=== PATIENT | female | born 1980 | race Caucasian/White ===

== ENCOUNTER 2020-10-19 15:31 | Emergency (ER) | payer SELFPAY ==
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
[2020-10-19] MEDS ORDERED: LIDOCAINE 1% W/EPI 1:100,000 MDV 20 ML VIAL ONE (16:50)
[2020-10-19] MEDS ORDERED: SMZ./TMP. 800/160 MG TABLET ONE (17:00)
[2020-10-19] MEDS ORDERED: FAMOTIDINE 20 MG TAB ONE (17:00)
[2020-10-19] MEDS ORDERED: ONDANSETRON 4 MG (ODT) TAB ONE (17:00)
[2020-10-19] MEDS ORDERED: HYDROCODONE/APAP 10/325 TAB ONE (17:01)
[2020-10-19] MEDS ORDERED: NA CHLORIDE 0.9% 250 ML ONE (17:19)
--- NOTE | 2020-10-19 17:39 | RAD REPORT ---
EXAM DESCRIPTION: US - Extremity Nonvascular Limited - 10/19/2020 5:30 pm CLINICAL HISTORY: Left shoulder pain and swelling COMPARISON: None FINDINGS: Sonographic evaluation of left shoulder demonstrates an ill-defined 1 centimeter hypo to i soechoic area within the subcutaneous tissues in the area of swelling. IMPRESSION: 1 centimeter hypo to isoechoic area within the subcutaneous tissues left shoulder probab ly inflammation. A discrete drainable abscess is not visualized
--- NOTE | 2020-10-19 18:15 | EDPHYS ---
Physician Documentation [facility] Name: Payal Saavedra Age: 40 yrs Sex: Female : 1980 Arrival Date: 10/19/2020 Time: 15:35 Bed 28 Private MD: ED Physician Sanjiv Navarro HPI: 10/19 16:31 This 40 yrs old Female presents to ER via Ambulatory with complaints of kdr Insect Bite. 16:31 The patient presents with an abscess of the anterior aspect of left shoulder, the kdr patient presents with a swollen area of the anterior aspect of left shoulder. Description: erythematous, fluctuant, hot, raised, swollen, tense, warm. Onset: The symptoms/episode began/occurred gradually, 24 hour(s) ago. Possible cause(s): insect sting. Associated signs and symptoms: Pertinent positives: drainage, erythema, swelling. Modifying factors: the symptoms are alleviated by nothing, the symptoms are aggravated by movement, pressure, touching. Severity of symptoms: At their worst the symptoms were mild, moderate, just prior to arrival, in the emergency department the symptoms are unchanged. The patient has not experienced similar symptoms in the past. The patient has not recently seen a physician. 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 - Social history:: Smoking status: Patient reports the use of cigarette tobacco products, smokes one-half pack cigarettes per day. ROS: 16:31 Constitutional: Negative for fever, chills, and weight loss, Eyes: Negative for injury, kdr pain, redness, and discharge, Neck: Negative for injury, pain, and swelling, Cardiovascular: Negative for chest pain, palpitations, and edema, Respiratory: Negative for shortness of breath, cough, wheezing, and pleuritic chest pain, Abdomen/GI: Negative for abdominal pain, nausea, vomiting, diarrhea, and constipation, Back: Negative for injury and pain, : Negative for injury, bleeding, discharge, and swelling, MS/Extremity: Negative for injury and deformity, Neuro: Negative for headache, weakness, numbness, tingling, and seizure activity. Psych: Negative for depression, anxiety, suicide ideation, homicidal ideation, and hallucinations, Allergy/Immunology: Negative for hives, rash, and allergies, Endocrine: Negative for neck swelling, polydipsia, polyuria, polyphagia, and marked weight changes, Hematologic/Lymphatic: Negative for swollen nodes, abnormal bleeding, and unusual bruising. 16:31 Skin: Positive for abscess, cellulitis, erythema, swelling, of the anterior aspect of left shoulder. Exam: 16:31 Constitutional: This is a well developed, well nourished patient who is awake, alert, kdr and in no acute distress. Head/Face: Normocephalic, atraumatic. Eyes: Pupils equal round and reactive to light, extra-ocular motions intact. Lids and lashes normal. Conjunctiva and sclera are non-icteric and not injected. Cornea within normal limits. Periorbital areas with no swelling, redness, or edema. Neck: Trachea midline, no thyromegaly or masses palpated, and no cervical lymphadenopathy. Supple, full range of motion without nuchal rigidity, or vertebral point tenderness. No Meningismus. Chest/axilla: Normal chest wall appearance and motion. Nontender with no deformity. No lesions are appreciated. Cardiovascular: Regular rate and rhythm with a normal S1 and S2. No gallops, murmurs, or rubs. Normal PMI, no JVD. No pulse deficits. Respiratory: Lungs have equal breath sounds bilaterally, clear to auscultation and percussion. No rales, rhonchi or wheezes noted. No increased work of breathing, no retractions or nasal flaring. Abdomen/GI: Soft, non-tender, with normal bowel sounds. No distension or tympany. No guarding or rebound. No evidence of tenderness throughout. Back: No spinal tenderness. No costovertebral tenderness. Full range of motion. MS/ Extremity: Pulses equal, no cyanosis. Neurovascular intact. Full, normal range of motion. Neuro: Awake and alert, GCS 15, oriented to person, place, time, and situation. Cranial nerves II-XII grossly intact. Motor strength 5/5 in all extremities. Sensory grossly intact. Cerebellar exam normal. Normal gait. Psych: Awake, alert, with orientation to person, place and time. Behavior, mood, and affect are within normal limits. 16:31 Skin: abscess, that is moderate sized, of the anterior aspect of left shoulder, with fluctuance, that is moderate, with induration, with surrounding cellulitis. Vital Signs: 15:42 BP 118 / 90; Pulse 110; Resp 17 S; Temp 98.0(TE); Pulse Ox 99% on R/A; Weight 58.97 kg jd3 (R); Height 5 ft. 5 in. (165.10 cm) (R); Pain 6/10; 18:27 BP 112 / 82; Pulse 98; Resp 18; Temp 97.9; Pulse Ox 100% on R/A; ph 15:42 Body Mass Index 21.63 (58.97 kg, 165.10 cm) jd3 Procedures: 16:31 I \T\ D: Incision and drainage was performed for an abscess of the left anterior aspect kdr of left shoulder Prepped with Betadine, Anesthetized with ml's 2% Lidocaine with epinephrine. 5 ml's 2% Lidocaine with epinephrine. Incised with #11 blade. Drained small amount Packed with iodoform gauze, Dressing: sterile 4x4 gauze, the patient tolerated the procedure well, Since there remains indurated/abscess s/p initial drainage, will get US to determine nature of residual abscess vs indurated tissue. 17:07 I \T\ D:. kdr MDM: 16:31 Data reviewed: vital signs, nurses notes. Counseling: I had a detailed discussion with kdr the patient and/or guardian regarding: the historical points, exam findings, and any diagnostic results supporting the discharge/admit diagnosis, the need for outpatient follow up. 18:14 Patient medically screened. kdr 10/19 17:06 Order name: US Extrmty Nonvasular Limited; Complete Time: 18:02 kdr 10/19 16:31 Order name: Dressing - Wound; Complete Time: 16:36 kdr 10/19 16:31 Order name: Gloves, Sterile; Complete Time: 16:36 kdr 10/19 16:31 Order name: I\T\D Setup; Complete Time: 16:36 kdr 10/19 16:31 Order name: Scalpel; Complete Time: 16:36 kdr Administered Medications: 16:46 Drug: Zofran (Ondansetron) 4 mg Route: PO; ph 17:18 Follow up: Response: No adverse reaction ph 16:47 Drug: Sherrill (HYDROcodone-acetaminophen) 10 mg-325 mg 1 tabs Route: PO; ph 17:19 Follow up: Response: No adverse reaction ph 16:47 Drug: Clindamycin 300 mg Route: PO; ph 17:19 Follow up: Response: No adverse reaction ph 16:48 Drug: Bactrim (trimethoprim-sulfamethoxazole) (160 mg-800 mg (DS) 1 tablet Route: PO; ph 17:19 Follow up: Response: No adverse reaction ph 16:48 Drug: Pepcid (famotidine) 20 mg Route: PO; ph 17:18 Follow up: Response: No adverse reaction ph 16:50 Drug: Lidocaine-Epinephrine -1%: (1:100,000) 1 vials Volume: 20 ml; Route: Infiltration;ph 17:18 Follow up: Response: No adverse reaction ph 18:21 Drug: morphine 4 mg Route: IM; Site: right deltoid; ph 18:26 Follow up: Response: No adverse reaction ph Disposition: 10/19/20 18:14 Discharged to Home. Impression: Left Shoulder Cutaneous Abscess. - Condition is Stable. - Discharge Instructions: Skin Abscess, [id number], Cellulitis, Adult, [id number]-[id number], Clostridium Difficile FAQs - [place]. - Prescriptions for Clindamycin HCl 300 mg Oral Capsule - take 1 capsule by ORAL route every 6 hours for 10 days; 40 capsule. Zofran 4 mg Oral Tablet - take 1 tablet by ORAL route every 4-6 hours As needed; 12 tablet. Bactrim DS 800- 160 mg Oral Tablet - take 1 tablet by ORAL route every 12 hours for 10 days; 20 tablet. Tylenol- Codeine #3 300-30 mg Oral Tablet - take 2 tablets by ORAL route every 4-6 hours As needed Take two tablets 30-45 mintues prior to dressing/packing change or as needed; 18 tablet. - Medication Reconciliation Form, Thank You Letter, Antibiotic Education form. - Follow up: Private Physician; When: 2 - 3 days; Reason: If symptoms return, Further diagnostic work-up, Recheck today's complaints, Continuance of care, Re-evaluation by your physician. - Problem is new. - Symptoms have improved. - Notes: Watch for C. Diff symptoms. You can take yogurt to help maintain your GI tract jordi. Signatures: Dispatcher [employer] Sanjiv Rivers MD MD kdr Sissy Harrell RN RN Kosta Stone RN RN jd3 Corrections: (The following items were deleted from the chart) 17:35 16:31 I \T\ D: Incision and drainage was performed for an abscess of the left anterior kdr aspect of left shoulder Prepped with Betadine, Anesthetized with ml's 2% Lidocaine with epinephrine. 5 ml's 2% Lidocaine with epinephrine. Incised with #11 blade. Drained moderate amount Packed with iodoform gauze, Dressing: sterile 4x4 gauze, the patient tolerated the procedure well, kdr 18:58 18:14 10/19/2020 18:14 Discharged to Home. Impression: Left Shoulder Cutaneous Abscess. ph Condition is Stable. Forms are Medication Reconciliation Form, Thank You Letter, Antibiotic Education, Prescription Opioid Use. Follow up: Private Physician; When: 2 - 3 days; Reason: If symptoms return, Further diagnostic work-up, Recheck today's complaints, Continuance of care, Re-evaluation by your physician. Problem is new. Symptoms have improved. kdr
--- NOTE | 2020-10-19 18:15 | ER ---
Nurse's Notes [facility] Name: Payal Saavedra Age: 40 yrs Sex: Female : 1980 Arrival Date: 10/19/2020 Time: 15:35 Bed 28 Private MD: Diagnosis: Left Shoulder Cutaneous Abscess Presentation: 10/19 15:39 Chief complaint: Patient states: "last night I noticed a painful bite on my left arm jd3 and today the pain is traveling down my arm.". Coronavirus screen: At this time, the client does not indicate any symptoms associated with coronavirus-19. Ebola Screen: Patient negative for fever greater than or equal to 101.5 degrees Fahrenheit, and additional compatible Ebola Virus Disease symptoms. Initial Sepsis Screen: Does the patient meet any 2 criteria? No. Patient's initial sepsis screen is negative. Does the patient have a suspected source of infection? No. Patient's initial sepsis screen is negative. Risk Assessment: Do you want to hurt yourself or someone else? Patient reports no desire to harm self or others. Onset of symptoms was October 18, 2020. 15:39 Method Of Arrival: Ambulatory jd3 15:39 Acuity: NIURKA 3 jd3 Triage Assessment: 17:17 Bite description: by unknown if pt was bitten, animal information: vaccination(s) is ph not applicable. 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 - Social history:: Smoking status: Patient reports the use of cigarette tobacco products, smokes one-half pack cigarettes per day. Screenin:19 Abuse screen: Denies threats or abuse. Denies injuries from another. Nutritional ph screening: No deficits noted. Tuberculosis screening: No symptoms or risk factors identified. Fall Risk None identified. Assessment: 17:13 General: Appears in no apparent distress. comfortable, slender, well groomed, Behavior ph is calm, cooperative, appropriate for age, Denies fever. Pain: Complains of pain in left bicep Pain radiates to chest and left arm. Neuro: Level of Consciousness is awake, alert, obeys commands, Oriented to person, place, time, situation. Cardiovascular: Capillary refill < 3 seconds in bilateral fingers Patient's skin is warm and dry. Respiratory: Airway is patent Respiratory effort is even, unlabored, Respiratory pattern is regular, symmetrical. GI: Reports nausea. Derm: Skin is healthy with good turgor, Skin is pink, warm \\T\\ dry. Derm: Abscess located on left bicep. Musculoskeletal: Circulation, motion, and sensation intact. Range of motion: intact in all extremities. 18:35 Reassessment: Patient appears in no apparent distress at this time. Patient and/or ph family updated on plan of care and expected duration. Pain level reassessed. Patient is alert, oriented x 3, equal unlabored respirations, skin warm/dry/pink. Vital Signs: 15:42 BP 118 / 90; Pulse 110; Resp 17 S; Temp 98.0(TE); Pulse Ox 99% on R/A; Weight 58.97 kg jd3 (R); Height 5 ft. 5 in. (165.10 cm) (R); Pain 6/10; 18:27 BP 112 / 82; Pulse 98; Resp 18; Temp 97.9; Pulse Ox 100% on R/A; ph 15:42 Body Mass Index 21.63 (58.97 kg, 165.10 cm) jd3 ED Course: 15:35 Patient arrived in ED. mr 15:40 Triage completed. jd3 15:42 Arm band placed on. jd3 15:59 Sanjiv Navarro MD is Attending Physician. kdr 16:19 Sissy Harrell, CARLIE is Primary Nurse. ph 16:21 Patient has correct armband on for positive identification. Bed in low position. Call light in reach. Side rails up X 1. Pulse ox on. NIBP on. Door closed. Noise minimized. Warm blanket given. 17:05 Assist provider with I \\T\\ D: of an abscess on left bicep Set up I\\T\\D tray. Performed by ph Sanjiv Navarro MD Patient tolerated well. no drainage noted at this time. 17:30 US Extrmty Nonvasular Limited In Process Unspecified. EDMS 18:38 Patient did not have IV access during this emergency room visit. ph Administered Medications: 16:46 Drug: Zofran (Ondansetron) 4 mg Route: PO; ph 17:18 Follow up: Response: No adverse reaction ph 16:47 Drug: Shelby (HYDROcodone-acetaminophen) 10 mg-325 mg 1 tabs Route: PO; ph 17:19 Follow up: Response: No adverse reaction ph 16:47 Drug: Clindamycin 300 mg Route: PO; ph 17:19 Follow up: Response: No adverse reaction ph 16:48 Drug: Bactrim (trimethoprim-sulfamethoxazole) (160 mg-800 mg (DS) 1 tablet Route: PO; ph 17:19 Follow up: Response: No adverse reaction ph 16:48 Drug: Pepcid (famotidine) 20 mg Route: PO; ph 17:18 Follow up: Response: No adverse reaction ph 16:50 Drug: Lidocaine-Epinephrine -1%: (1:100,000) 1 vials Volume: 20 ml; Route: Infiltration;ph 17:18 Follow up: Response: No adverse reaction ph 18:21 Drug: morphine 4 mg Route: IM; Site: right deltoid; ph 18:26 Follow up: Response: No adverse reaction ph Outcome: 18:14 Discharge ordered by . kdr 18:38 Discharged to home ambulatory, with family. ph 18:38 Condition: good 18:38 Discharge instructions given to patient, Instructed on discharge instructions, follow up and referral plans. medication usage, Demonstrated understanding of instructions, follow-up care, medications, Prescriptions given X 4. 18:58 Patient left the ED. ph Signatures: Dispatcher [employer] [facility] Sanjiv Navarro MD MD kdr Rivera, Mary mr Hall, Patricia, RN RN ph Kosta Milligan RN RN jd3
[2020-10-19] MEDS ORDERED: MORPHINE 4 MG/ML SYR ONE (18:37)
[2020-10-19 19:14] VITALS: BP 112/82; TEMP 97.9; O2SAT 100
== END 2020-10-19 18:58 | disposition home or self-care (01) ==
LOC: ER 15:31
PROC: 0H9CXZZ Drainage of Left Upper Arm Skin, External Approach (ICD-10-PCS; principal; 2020-10-19)
DX: L02.414 Cutaneous abscess of left upper limb (principal); F17.210 Nicotine dependence, cigarettes, uncomplicated
CPT/HCPCS: 76882; 96372; 99284; J7050